=== PATIENT | female | born 1995 | race Caucasian/White ===

== ENCOUNTER 2017-05-17 14:09 | Observation (INO) | payer BC, OTHER ==
[2017-05-17 14:27] VITALS: O2SAT 98
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
[2017-05-17 15:40] LABS: Bilirubin MODERATE (NEGATIVE); COMPLETE URINE MICROSCOPIC? YES; Collection Type VOID; Glucose NEGATIVE (NEGATIVE); Leukocyte Esterase TRACE (NEGATIVE)
[2017-05-17 15:41] LABS: ADD URINE CULTURE? YES (NO); Bacteria MODERATE /HPF (NEGATIVE); CALCIUM OXALATE CRYSTALS >100 /HPF (NEGATIVE); Epithelial Cells MANY /HPF (FEW)
[2017-05-17] MEDS ORDERED: PROCARDIA 10 MG PO ONE (16:13)
[2017-05-17] MEDS ORDERED: TYLENOL 325 MG PO ONE (19:23)
[2017-05-17] MEDS ORDERED: TYLENOL 325 MG ONE (20:04)
[2017-05-17 20:18] VITALS: BP 111/59; PULSE 90
== END 2017-05-17 20:15 | disposition home or self-care (01) ==
LOC: ED 14:09 → OB 15:49
PROVIDERS: ADMIT Family Medicine; ATTEND Family Medicine
DX: Z34.83 Encounter for supervision of other normal pregnancy, third trimester (principal)
CPT/HCPCS: 59025; 81000; 87086; 99285; G0378; A9270-GY